=== PATIENT | male | born 1995 | race Caucasian/White ===

== ENCOUNTER 2017-06-10 14:50 | Emergency (ER) | payer OTHER ==
[~2017-06-10] VITALS: Ht 182.9 cm; Wt 136.1 kg
[2017-06-10] MEDS ORDERED: KEFLEX500 M1 PO (16:22)
[2017-06-10] MEDS ORDERED: BACTRIM DS TAB1 EACH PO (16:22)
[2017-06-10 16:36] VITALS: BP 122/60
== END 2017-06-10 16:36 | disposition home or self-care (01) ==
LOC: M.ERS 14:50
DX: L02.01 Cutaneous abscess of face (principal); F41.9 Anxiety disorder, unspecified; J45.909 Unspecified asthma, uncomplicated

== ENCOUNTER 2019-04-09 14:25 | Emergency (ER) | payer OTHER ==
[~2019-04-09] VITALS: Ht 182.9 cm; Wt 131.5 kg
[~2019-04-09 14:25] MED LIST: BACTRIM DS TAB1 EACH PO; KEFLEX500 M1 PO
[2019-04-09 15:07] LABS: ABSOLUTE BASOPHILS 0.1 thou/uL (0.0-0.2); ABSOLUTE EOSINOPHILS 0.3 thou/uL (0.0-0.7); ABSOLUTE MONOCYTES 0.3 thou/uL (0.0-1.2); ABSOLUTE NEUTROPHILS 4.3 thou/uL (1.6-8.1); BASOPHILS 1.1 %; EOSINOPHILS 3.7 %; HEMATOCRIT 44.6 % (42.0-52.0); HEMOGLOBIN 15.6 gm/dL (14.0-18.0); LYMPHOCYTES 28.5 %; MCH 29.7 pg (26.0-34.0); MCHC 34.9 g/dL (28.0-37.0); MCV 85.1 fL (80.0-100.0); MONOCYTES 4.7 %; MPV 10.2 fl. (7.2-11.1); NUCLEATED RBCS 0 /100WBC; PLATELET COUNT* 150 thou/uL (150-400); RBC 5.24 mil/uL (4.50-6.00); RDW-CV 12.7 % (10.5-14.5); WBC 6.9 thou/uL (4.0-11.0)
[2019-04-09 15:09] LABS: URINE BILIRUBIN NEGATIVE (Negative); URINE BLOOD NEGATIVE (Negative); URINE CLARITY CLEAR; URINE COLOR YELLOW; URINE GLUCOSE-RANDOM NEGATIVE (Negative); URINE KETONES NEGATIVE (Negative); URINE LEUKOCYTES NEGATIVE (Negative); URINE NITRITE NEGATIVE (Negative); URINE PROTEIN NEGATIVE (Negative); URINE UROBILINOGEN 0.2 E.U./dl (0.2-1.0)
[2019-04-09 15:22] LABS: CALCIUM 8.9 mg/dL (8.5-10.1); POTASSIUM 3.9 mmol/L (3.5-5.1)
[2019-04-09 15:27] LABS: ALBUMIN 4.1 g/dL (3.4-5.0); TOTAL BILIRUBIN 0.5 mg/dL (<0.1-1.0); TOTAL PROTEIN 8.1 g/dL (6.4-8.2)
[2019-04-09] MEDS ORDERED: ZOFRAN ODT4 MG PO (15:54)
[2019-04-09 16:16] VITALS: BP 126/64
== END 2019-04-09 16:18 | disposition home or self-care (01) ==
LOC: M.ERS 14:25
PROVIDERS: Physician Assistant
DX: K52.9 Noninfective gastroenteritis and colitis, unspecified (principal); J45.909 Unspecified asthma, uncomplicated; E66.9 Obesity, unspecified; Z68.39 Body mass index [BMI] 39.0-39.9, adult